=== PATIENT | female | born 1995 | race Caucasian/White ===

== ENCOUNTER → 2019-04-28 | Outpatient (REF) | payer OTHER | LOC: M SFHCLERA 15:38 | PROVIDERS: ATTEND Nurse Practitioner Family | DX: J02.9 Acute pharyngitis, unspecified (principal) ==

== ENCOUNTER → 2019-07-18 | Outpatient (REF) | payer OTHER | LOC: M SFHCLERA 14:41 | PROVIDERS: ATTEND Physician Assistant | DX: Z3A.01 Less than 8 weeks gestation of pregnancy (principal) | CPT/HCPCS: 81002; 81025; 87086; G0463 ==

== ENCOUNTER → 2019-10-15 | Outpatient (REF) | payer OTHER | LOC: M SFHCLERA 16:34 | PROVIDERS: ATTEND Nurse Practitioner Family | DX: J02.9 Acute pharyngitis, unspecified (principal) ==

== ENCOUNTER → 2019-10-30 | Outpatient (REF) | payer OTHER ==
[2019-10-30 14:02] LABS: BLOOD UREA NITROGEN 18 MG/DL (7-18); CALCIUM LEVEL 8.8 MG/DL (8.5-10.1); CARBON DIOXIDE LEVEL 26 MEQ/L (21-32); CHLORIDE LEVEL 105 MEQ/L (98-107); COMPLEMENT C3 164 MG/DL (90-180); COMPLEMENT C4 28 MG/DL (10-40); CREATININE FOR GFR 0.62 MG/DL (0.55-1.30); GLOMERULAR FILTRATION RATE > 60.0 (>60); GLUCOSE, FASTING 89 MG/DL (70-100); MAGNESIUM LEVEL 1.8 MG/DL (1.8-2.4); PHOSPHORUS LEVEL 4.2 MG/DL (2.5-4.9); POTASSIUM SERUM 4.1 MEQ/L (3.5-5.1); RHEUMATOID FACTOR QUANT < 10.0 IU/ML (<15.0); SODIUM LEVEL 140 MEQ/L (136-145); TOTAL PROTEIN 7.2 GM/DL (6.4-8.2); URIC ACID 4.9 MG/DL (2.6-6.0)
[2019-10-30 16:04] LABS: CORTISOL AM 6.3 UG/DL (4.3-22.4)
[2019-11-03 12:55] LABS: ALBUMIN 4.08 GM/DL (3.29-5.55); ALBUMIN % 56.6 % (55.8-66.1); ALPHA-1-GLOBULIN % 4.6 % (2.9-4.9); ALPHA-1-GLOBULINS 0.33 GM/DL (0.17-0.41); ALPHA-2-GLOBULINS 0.76 GM/DL (0.42-0.99); ALPHA-2-GLOBULINS % 10.5 % (7.1-11.8); BETA-1-GLOBULINS 0.53 GM/DL (0.28-0.60); BETA-1-GLOBULINS % 7.3 % (4.7-7.2); BETA-2-GLOBULINS 0.45 GM/DL (0.19-0.55); BETA-2-GLOBULINS % 6.3 % (3.2-6.5); GAMMA GLOBULIN % 14.7 % (11.1-18.8); GAMMA GLOBULINS 1.06 GM/DL (0.65-1.58)
== END ==
LOC: M LAB REF 13:03
PROVIDERS: ATTEND Internal Medicine Nephrology
DX: R80.9 Proteinuria, unspecified (principal); I12.9 Hypertensive chronic kidney disease with stage 1 through stage 4 chronic kidney disease, or unspecified chronic kidney disease; N18.2 Chronic kidney disease, stage 2 (mild); N25.81 Secondary hyperparathyroidism of renal origin

== ENCOUNTER → 2019-11-02 | Outpatient (REF) | payer OTHER ==
[2019-11-02 16:36] LABS: CREATININE 24 HOUR, URINE 1373.4 MG/24HR (600-1800); CREATININE, URINE 65.4 MG/DL; POTASSIUM URINE 18.6 MEQ/L; TOTAL PROTEIN 24 HOUR URINE 810.6 MG/24HR (50-150); URINE TOTAL PROTEIN 38.6 MG/DL (0-12)
== END ==
LOC: M LAB REF 12:51
PROVIDERS: ATTEND Internal Medicine Nephrology
DX: R80.9 Proteinuria, unspecified (principal); I12.9 Hypertensive chronic kidney disease with stage 1 through stage 4 chronic kidney disease, or unspecified chronic kidney disease

== ENCOUNTER → 2020-11-10 | Outpatient (REF) | payer OTHER ==
[~2020-11-10] MED LIST: ASPI81CH33 PO; LABE200T32 PO; METF10004 PO; NIFE20CA PO; PREN1CHW6 PO
== END ==
LOC: M LAB REF 16:59
PROVIDERS: ATTEND Internal Medicine Nephrology
DX: D64.9 Anemia, unspecified (principal)

== ENCOUNTER → 2020-11-14 | Outpatient (REF) | payer OTHER ==
[2020-11-14 18:34] LABS: CREATININE, URINE 54.7 MG/DL; URINE TOTAL PROTEIN 27.5 MG/DL (0-12)
[2020-11-14 20:45] LABS: CREATININE 24 HOUR, URINE 1285.4 MG/24HR (600-1800); TOTAL PROTEIN 24 HOUR URINE 646.2 MG/24HR (50-150)
== END ==
LOC: M LAB REF 17:08
PROVIDERS: ATTEND Internal Medicine Nephrology
DX: R80.9 Proteinuria, unspecified (principal)

== ENCOUNTER 2020-11-22 08:27 | Outpatient (CLI) | payer OTHER ==
[~2020-11-22] VITALS: Ht 167.6 cm; Wt 91.1 kg
[~2020-11-22 08:27] MED LIST changes: +ALBUTEROL SULFATE 2.5 MG/0.5 ML INH NEB SOLN INH PRN; -ASPI81CH33 PO; +EPINEPHrine INJ 1 MG/ML 1ML AMP IM PRN; -LABE200T32 PO; -METF10004 PO; -NIFE20CA PO; -PREN1CHW6 PO; +diphenhydrAMINE 50MG/ML VIAL (J1200) IV PRN; +methylPREDNISolone 125MG 2ML VIAL IV PRN
[2020-11-22 08:38] VITALS: BP 160/91
[2020-11-22] MEDS ORDERED: METF10004 PO (08:51)
[2020-11-22] MEDS ORDERED: NIFE20CA PO (08:51)
[2020-11-22] MEDS ORDERED: PREN1CHW6 PO (08:53)
[2020-11-22] MEDS ORDERED: ASPI81CH33 PO (08:53)
[2020-11-22] MEDS ORDERED: LABE200T32 PO (08:53)
[2020-11-22] MEDS ORDERED: IRON SUCROSE 25 MG in NS 25 ML IV ONE (09:30)
[2020-11-22] MEDS ORDERED: NS 1,000 ML IV SCH (09:30)
[2020-11-22 09:56] VITALS: BP 118/76
[2020-11-22] MEDS ORDERED: IRON SUCROSE 200 MG in NS 100 ML OVER 1 HR IV ONE (10:30)
[2020-11-22 11:14] VITALS: BP 119/76
== END 2020-11-22 11:14 | disposition home or self-care (01) ==
LOC: M INFU 08:27
PROVIDERS: ATTEND Internal Medicine Nephrology
DX: D50.9 Iron deficiency anemia, unspecified (principal)
CPT/HCPCS: 96365; J1756